=== PATIENT | male | born 1995 | race Caucasian/White ===

== ENCOUNTER → 2016-07-16 | Outpatient (CLI) | payer BC, OTHER ==
[~2016-07-16] MED LIST: MULT-506 PO; VITACAP26 PO
--- NOTE | 2016-07-16 15:43 | DIAGNOSTIC IMAGING REPORT ---
RIGHT SHOULDER MIN 2 VIEWS CLINICAL HISTORY: RIGHT SHOULDER PAIN Right pain COMPARISON: None. DISCUSSION: The bones and joint spaces appear intact. There is no evidence of fracture, dislocation or bony disease. There is no evidence for soft tissue swelling. IMPRESSION: Negative study. Electronically signed by: Tee Tinsley M.D. 07/16/2016 3:42 PM Dictated Date/Time: 07/16/2016 3:41 PM
== END | disposition home or self-care (01) ==
LOC: C.RDSM 15:35
PROVIDERS: ATTEND Family Medicine
DX: M25.511 Pain in right shoulder (principal)

== ENCOUNTER → 2017-01-07 | Outpatient (CLI) | payer BC, OTHER ==
--- NOTE | 2017-01-07 12:54 | DIAGNOSTIC IMAGING REPORT ---
LEFT FOOT MIN 3 VIEWS CLINICAL HISTORY: 21 years-old Male presenting with LEFT FOOT PAIN. TECHNIQUE: Bilateral frontal standing views of the feet, oblique and lateral views of the left foot, and tangential view of the left toes were obtained. COMPARISON: None. FINDINGS: No acute fracture or malalignment. Sesamoid bones subjacent to the first left metatarsal head are intact. No degenerative change. Regional soft tissues normal. IMPRESSION: No acute osseous injury of the left foot. Electronically signed by: Golden Navarro M.D. 01/07/2017 12:53 PM Dictated Date/Time: 01/07/2017 12:51 PM
== END | disposition home or self-care (01) ==
LOC: C.RDSM 11:57
PROVIDERS: ATTEND Family Medicine
DX: M79.672 Pain in left foot (principal)

== ENCOUNTER → 2017-01-15 | Outpatient (CLI) | payer BC, OTHER ==
--- NOTE | 2017-01-15 14:16 | DIAGNOSTIC IMAGING REPORT ---
LEFT FOREFOOT MRI HISTORY: LEFT FOOT PAIN TECHNIQUE: Left foot 01/07/2017. COMPARISON STUDY: Multiplanar multisequence MRI of the left forefoot was performed without the use of intravenous contrast. FINDINGS: Within the medial aspect of the first metatarsal head there is focal fluid/edema underlying a nondisplaced bony fragment. This is consistent with a nondisplaced fracture . The bony fragment measures 6 mm. There is mild surrounding soft tissue edema medial to the first MTP joint. There is also mild marrow edema within the medial sesamoid bone at this location. The first MTP joint capsular ligaments appear to be grossly intact. There is mild soft tissue edema surrounding the medial sesamoid bone. IMPRESSION: 1. Small nondisplaced fracture/osteochondral defect within the medial head of the first metatarsal. This favors a subacute/healing fracture. 2. Mild edema within the medial sesamoid bone suggestive of a bone contusion/sesamoiditis. 3. The first MTP joint capsular ligaments appear intact. Electronically signed by: Louie Jordan M.D. 01/15/2017 2:15 PM Dictated Date/Time: 01/15/2017 2:03 PM
== END | disposition home or self-care (01) ==
LOC: C.MRIBC 12:59
PROVIDERS: ATTEND Family Medicine
DX: M79.672 Pain in left foot (principal)

== ENCOUNTER → 2017-09-03 | Outpatient (CLI) | payer BC, OTHER ==
--- NOTE | 2017-09-03 12:08 | DIAGNOSTIC IMAGING REPORT ---
L FOOT MIN 3 VIEWS CLINICAL HISTORY: LEFT FOOT PAIN COMPARISON: 01/07/2017 DISCUSSION: No fractures or dislocations are visualized. There are no erosive or destructive changes. There is a small talo beak. There is a small spur arising from the anterior aspect of the tibial plafond. IMPRESSION: 1. No acute fractures 2. No evidence of erosive disease 3. 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 09/03/2017 12:06 PM Dictated Date/Time: 09/03/2017 12:05 PM
== END | disposition home or self-care (01) ==
LOC: C.RDSM 14:48
PROVIDERS: ATTEND Family Medicine
DX: M79.672 Pain in left foot (principal)